=== PATIENT | female | born 1935 | race Native Hawaiian/Other Pacific Islander ===

== ENCOUNTER 2018-12-26 10:42 | Outpatient (CLI) | payer OTHER | END 2018-12-26 19:46 | disposition home or self-care (01) | LOC: RAD 10:42 | DX: R91.8 Other nonspecific abnormal finding of lung field (principal); R06.02 Shortness of breath; I50.89 Other heart failure; R53.83 Other fatigue ==

== ENCOUNTER 2019-01-11 15:53 | Inpatient (IN) | payer OTHER ==
[~2019-01-11] VITALS: Ht 157.5 cm; Wt 55.6 kg
[2019-01-11 17:43] LABS: PLATELET COUNT 432 K/uL (152-353)
[2019-01-11 19:08] LABS: POTASSIUM 5.1 mmol/L (3.6-5.2)
[2019-01-11 19:47] VITALS: BP 171/61; TEMP 97.9; Ht 157.5 cm; Wt 55.6 kg
[2019-01-12 00:15] VITALS: BP 156/54; TEMP 98
[2019-01-12 20:00] VITALS: BP 118/50; TEMP 98.8
[2019-01-13 20:00] VITALS: BP 124/52; TEMP 98.8
[2019-01-14 07:30] VITALS: BP 138/53; TEMP 97.2
[2019-01-14 20:00] VITALS: BP 133/65; TEMP 98.7
[2019-01-15] MEDS ORDERED: GUAI600T70 PO (04:25)
[2019-01-15] MEDS ORDERED: ELIQUIS STARTER5 MG PO (04:27)
[2019-01-15] MEDS ORDERED: FURO20TA67 PO (04:28)
[2019-01-15] MEDS ORDERED: AZEL137S NAS (04:29)
[2019-01-15] MEDS ORDERED: BISO5TAB2 PO (04:30)
[2019-01-15] MEDS ORDERED: COZAAR25 MG PO (04:32)
[2019-01-15] MEDS ORDERED: MECLIZINE 2525 MG PO (04:34)
[2019-01-15] MEDS ORDERED: MONTELUKAST SOD10 MG PO (04:34)
[2019-01-15] MEDS ORDERED: OMEPRAZOLE10 MG PO (04:36)
[2019-01-15] MEDS ORDERED: KLOR-CON M2020 MEQ PO (04:37)
[2019-01-15] MEDS ORDERED: CEPACOL SORE1 LOZ MT (04:41)
[2019-01-15] MEDS ORDERED: LEVALBUTER1.25 MG/3 INJ (04:48)
[2019-01-15] MEDS ORDERED: NITR0.4S2 SL (04:50)
[2019-01-15] MEDS ORDERED: OMEPRAZOLE DR20 MG PO (04:55)
[2019-01-15] MEDS ORDERED: DILT-XR240 MG PO (05:00)
[2019-01-15] MEDS ORDERED: BISOPROL FUM5 MG PO (05:03)
[2019-01-15 08:00] VITALS: BP 133/57; TEMP 98.3
[2019-01-15 21:17] VITALS: BP 132/54; TEMP 98.2
[2019-01-16 08:00] VITALS: BP 137/64; TEMP 97.9
[2019-01-16 20:00] VITALS: BP 125/49; TEMP 97.5
[2019-01-17 20:03] VITALS: BP 135/60; TEMP 98.4
[2019-01-18 20:05] VITALS: BP 123/70; TEMP 97.9
[2019-01-19 08:41] LABS: PLATELET COUNT 202 K/uL (152-353)
[2019-01-19 08:59] LABS: POTASSIUM 4.1 mmol/L (3.6-5.2)
[2019-01-19 20:00] VITALS: BP 122/55; TEMP 97.7
[2019-01-20 08:17] VITALS: BP 136/61; TEMP 98
[2019-01-20 20:00] VITALS: BP 127/52; TEMP 97.7
[2019-01-21 08:54] VITALS: BP 122/56; TEMP 97.7
[2019-01-21 19:48] VITALS: BP 123/59; TEMP 97.8
[2019-01-22 12:00] LABS: PLATELET COUNT 204 K/uL (152-353)
[2019-01-22 12:18] LABS: POTASSIUM 4.5 mmol/L (3.6-5.2); SODIUM 137 mmol/L (136-145)
[2019-01-22 19:58] VITALS: BP 120/52; TEMP 97.9
[2019-01-23 08:00] VITALS: BP 125/81; TEMP 98
[2019-01-23 20:00] VITALS: BP 122/51; TEMP 98.3
[2019-01-24 08:16] VITALS: BP 126/56; TEMP 98.4
[2019-01-24 19:49] VITALS: BP 116/53; TEMP 98.2
[2019-01-25 08:11] VITALS: BP 127/63; TEMP 98.1
[2019-01-25 19:57] VITALS: BP 117/56; TEMP 98.6
[2019-01-26 08:00] VITALS: BP 108/53; TEMP 97.7
[2019-01-26 20:00] VITALS: BP 129/53; TEMP 98.3
[2019-01-27 19:53] VITALS: BP 128/54; TEMP 98.1
[2019-01-28 08:05] VITALS: BP 122/57; TEMP 97.7
[2019-01-28 08:11] VITALS: BP 110/63; TEMP 98.1
[2019-01-28 20:00] VITALS: BP 131/66; TEMP 98
[2019-01-29 08:05] VITALS: BP 127/61; TEMP 98.5
[2019-01-29 20:00] VITALS: BP 123/54; TEMP 98
[2019-01-30 21:04] VITALS: BP 120/50; TEMP 98.3
== END 2019-01-31 11:45 | disposition home health service (06) | DRG 556 ==
LOC: MED/SURG 15:53
PROVIDERS: Family Medicine; ADMIT Internal Medicine
DX: M62.81 Muscle weakness (generalized) (principal); I48.2 Chronic atrial fibrillation; I10 Essential (primary) hypertension; E78.49 Other hyperlipidemia; Z86.73 Personal history of transient ischemic attack (TIA), and cerebral infarction without residual deficits; E03.8 Other specified hypothyroidism; R62.7 Adult failure to thrive; R26.89 Other abnormalities of gait and mobility; I50.9 Heart failure, unspecified; T46.2X1A Poisoning by other antidysrhythmic drugs, accidental (unintentional), initial encounter; J70.2 Acute drug-induced interstitial lung disorders
CPT/HCPCS: 80053; 81000; 82550; 83880; 84484; 85027; 85379; 87081; 90715; 93005; 94640; 94664; 94760; Q9963